=== PATIENT | male | born 1970 | race Caucasian/White ===

== ENCOUNTER 2018-05-07 11:12 | Inpatient (IN) | payer OTHER ==
[~2018-05-07] VITALS: Ht 198.1 cm; Wt 105.1 kg
--- NOTE | ~2018-05-07 | CON ---
[facility] [address] [place] [address] CONSULTATION Name: JONA NELSON Room: [address] IN .R.#: [id number] Admission: 05/07/18 Attend Phys: Sung Asher MD Discharge: Date of : 68 Report #: [id number] THIS REPORT FOR: //name// CC: VINICIUS physician/PCP Sung Asher REASON FOR CONSULTATION: Paroxysmal atrial fibrillation, hypertension and chest pain. HISTORY OF PRESENT ILLNESS: The patient is a very pleasant 47-year-old gentleman who ran out of medication some time ago. He has been having intermittent palpitations consistent with paroxysmal atrial fibrillation. In the past, he was well controlled on beta shakir alone. His CHADS score is 1 for hypertension. He is not chronically anticoagulated. He noted some atypical midsternal chest discomfort without radiation earlier today. This occurred while at rest. EKG was unremarkable. Troponins are unremarkable. He is without other cardiac complaint. PAST MEDICAL HISTORY: 1. Hypertension. 2. Paroxysmal atrial fibrillation. FAMILY HISTORY: The patient's father of heart disease in his mid 30s or early 40s. No other history of heart disease in the family. SOCIAL HISTORY: The patient smokes marijuana occasionally. He does not smoke tobacco, cigarettes. He drinks alcohol occasionally. He is single. ALLERGIES: None documented. CURRENT MEDICATIONS: None. PRIOR HOME MEDICATIONS: Included metoprolol tartrate 100 mg p.o. b.i.d., amlodipine 5 mg daily, hydrochlorothiazide 25 mg daily. REVIEW OF SYSTEMS: A 14-point review of systems is positive for occasional episodes of weakness and numbness of his left upper extremity. He has an occasional cough that is minimally productive. He reports palpitations and chest discomfort as outlined above. He has seasonal allergies, but no medical allergies. He reports history of depression and anxiety in the past. Otherwise, 14-point review of systems was unremarkable. PHYSICAL EXAMINATION: VITAL SIGNS: Blood pressure 160/104, pulse 93 and regular. GENERAL: This is a pleasant gentleman in no distress. [place] [address] CONSULTATION Name: OJNA NELSON Room: [address] IN [facility].#: [id number] Admission: 05/07/18 Attend Phys: Sung Asher MD Discharge: Date of : 68 Report #: [id number] HEENT: Extraocular muscles intact. Mucous membranes moist. NECK: Shows no jugular venous distention, no carotid bruit. CHEST: Reveals clear lung mario without wheezes or rales. CARDIAC: Reveals regular rhythm. Normal S1 and S2. I do not appreciate gallop or murmur. ABDOMEN: Reveals normal bowel sounds. The abdomen is soft and nontender. EXTREMITIES: Shows no edema. Peripheral pulses are 2+ and easily palpable. A 12-lead EKG shows sinus rhythm with no significant ST or T-wave abnormality. LABORATORY DATA: Labs are reviewed. Electrolytes within normal limits. BUN and creatinine normal. Serum glucoses are normal. Troponin is less than 0.06 on 2 separate occasions. IMPRESSION AND RECOMMENDATIONS: 1. Hypertension. Resume home medications as outlined above. 2. Paroxysmal atrial fibrillation. Recommend daily aspirin. I have resumed metoprolol. No further changes at this time. 3. Chest pain, somewhat atypical and prolonged in nature. Enzymes and EKG are unremarkable. We will follow clinically. Consider outpatient stress testing if necessary. By: [id number] Gotti MD /nt
[~2018-05-07 11:12] MED LIST: HYDROCHLOROTHIA25 M2 PO; HYDROCODON-ACE1 EAC7 PO; LOPRESSOR100 M1 PO; NORVASC5 MG PO; PENICILLIN VK500 MG PO
[2018-05-07 11:15] VITALS: BP 183/110
[2018-05-07 11:30] LABS: ABSOLUTE BASOPHILS 0.1 thou/uL (0.0-0.2); ABSOLUTE LYMPHOCYTES 2.2 thou/uL (0.8-5.3); ABSOLUTE MONOCYTES 0.4 thou/uL (0.0-1.2); ABSOLUTE NEUTROPHILS 10.1 thou/uL (1.6-8.1); BASOPHILS 0.5 %; HEMATOCRIT 46.1 % (42.0-52.0); HEMOGLOBIN 15.6 gm/dL (14.0-18.0); LYMPHOCYTES 17.3 %; MCH 29.5 pg (26.0-34.0); MCHC 33.8 g/dL (28.0-37.0); MCV 87.2 fL (80.0-100.0); MPV 8.6 fl. (7.2-11.1); NUCLEATED RBCS 0 /100WBC; PLATELET COUNT* 329 thou/uL (150-400); POLYS 79.2 %; RBC 5.28 mil/uL (4.50-6.00); RDW-CV 14.3 % (10.5-14.5); WBC 12.8 thou/uL (4.0-11.0)
[2018-05-07 11:37] LABS: APTT 26.6 Seconds (25.0-31.3); INR 1.1; PROTIME 10.8 Seconds (9.20-11.50)
[2018-05-07 11:40] LABS: ANION GAP 13 mmol/L (7-16); BUN 14 mg/dL (7-18); CALCIUM 9.3 mg/dL (8.5-10.1); CHLORIDE 105 mmol/L (98-107); CO2 25 mmol/L (21-32); CREATININE 1.3 mg/dL (0.6-1.3); GLUCOSE 95 mg/dL (70-99); POTASSIUM 4.1 mmol/L (3.5-5.1); SODIUM 143 mmol/L (136-145); TROPONIN-I LEVEL <0.06 ng/mL (<0.06)
[2018-05-07 11:43] LABS: ALBUMIN 4.4 g/dL (3.4-5.0); ALKALINE PHOSPHATASE 93 U/L (46-116); CK-MB MASS 5.4 ng/mL (<0.5-3.6); LIPASE 207 U/L (73-393); MAGNESIUM 2.1 mg/dL (1.8-2.4); NT-PRO BRAIN NAT PEPTIDE 144 pg/mL (<300); SGOT 29 U/L (15-37); SGPT 27 U/L (30-65); TOTAL BILIRUBIN 0.4 mg/dL (<0.1-1.0)
--- NOTE | 2018-05-07 13:20 | NUR ---
PENNY RELEASED PT FROM CUSTODY DUE TO PT BEING ADMITTED TO THE HOSPITAL.
[2018-05-07 14:07] VITALS: BP 170/108
[2018-05-07 14:25] VITALS: BP 160/104
[2018-05-07 16:05] VITALS: BP 158/97
--- NOTE | 2018-05-07 16:21 | NUR ---
ARRIVED ON UNIT BY CART @ 1410. PT ORIENTED TO ROOM. BLOOD PRESSURE ELEVATED @ 160/104. PLACED ON CERTIFIED RESIDENTIAL MEDICATION AIDE. PT INDICATED PAIN @ 2/[address] MARTINEZ NOTIFIED OF ELEVATED BP. NEW ORDER RECEIVED AND MEDICATION ADMINISTERED. WILL CONTINUE TO MONITOR.
--- NOTE | 2018-05-07 17:55 | NUR ---
ASSUMED CARE OF PT FROM VIJAY CASTANEDA READ AND AGREE WITH HER ASSESSMENT. PT HAS RESTED IN HIS ROOM WITH NO C/O PAIN OR DISCOMFORT. HOURLY ROUNDING CONT.
[2018-05-07 20:20] VITALS: BP 157/98
[2018-05-08] VITALS: BP 156/101
[2018-05-08 04:00] VITALS: BP 139/89
--- NOTE | 2018-05-08 05:07 | NUR ---
PT CARE ASSUMED AT 1930. SAT MAINTAINED IN RA. ALERT AND ORIENTED X4. CALL LIGHT WITHIN REACH AND BED IN LOW POSITION. C/O PAIN, MEDICATION GIVEN PER EMAR. DENIES SOB AND CHEST PAIN. BP ELEVATED AT LA, PHYCISIAN NOTIFIED, NO ORDERS RECIEVED. BP IMPROVED IN THE MONRNING. HOURLY ROUNDING DONE FOR PT SAFETY.
[2018-05-08 08:00] VITALS: BP 147/96
[2018-05-08 10:04] VITALS: BP 147/96
--- NOTE | 2018-05-08 12:11 | EKG ---
[place] [address] ELECTROCARDIOGRAM REPORT Name: JONA NELSON Room: [address] IN 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1970 Requested By: Jarrell Aguilar Order Number: [id number] MD: Vernon Ryan Measurements Intervals [place] Rate: 96 P: 60 [place]: 163 QRS: 19 QRSD: 85 T: 4 QT: 357 QTc: 452 Interpretive Statements Sinus rhythm Probable left atrial enlargement RSR' in V1 or V2, probably normal variant Minimal ST elevation, anterior leads Baseline wander in lead(s) V2,V4 Compared to ECG 09/17/2016 17:36:55 RSR' in V1 or V2 now present ST (T wave) deviation now present Electronically Signed On 05-08-2018 12:11:30 CDT by Vernon Ryan [email or web address] <ELECTRONICALLY SIGNED> By: Vernon Ryan MD, FACC 05/08/18 1211 1126 [id number] Vernon Ryan MD, [facility] /EPI
--- NOTE | 2018-05-08 12:16 | EKG ---
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1970 Requested By: Sung Asher Order Number: [id number] Reading MD: Vernon Ryan Measurements Intervals [place] Rate: 70 P: 25 [place]: 166 QRS: 6 QRSD: 89 T: 1 QT: 399 QTc: 431 Interpretive Statements Sinus rhythm ST elev, probable normal early repol pattern Compared to ECG 09/17/2016 17:36:55 ST (T wave) deviation now present Electronically Signed On 05-08-2018 12:15:52 CDT by Vernon Ryan [email or web address] <ELECTRONICALLY SIGNED> By: Vernon Ryan MD, [facility] 05/08/18 1215 08 08 Vernon Ryan MD, [facility] /EPI
== END 2018-05-08 10:45 | disposition home or self-care (01) | DRG 313 ==
LOC: M.ERS 11:12 → M.TBA-ER 12:52 → M.2W 12:52
PROVIDERS: Emergency Medicine
DX: R07.89 Other chest pain (principal); I10 Essential (primary) hypertension; F12.90 Cannabis use, unspecified, uncomplicated; I48.0 Paroxysmal atrial fibrillation

== ENCOUNTER 2018-09-17 05:49 | Emergency (ER) | payer OTHER ==
[~2018-09-17] VITALS: Ht 198.1 cm; Wt 104.3 kg
[2018-09-17] MEDS ORDERED: CLEOCIN HCL150 MG PO (06:21)
[2018-09-17] MEDS ORDERED: NORCO 7.5-3251 EACH PO (06:21)
[2018-09-17 06:30] VITALS: BP 160/116
== END 2018-09-17 06:30 | disposition home or self-care (01) ==
LOC: M.ERS 05:49
DX: L03.011 Cellulitis of right finger (principal); I48.91 Unspecified atrial fibrillation; I10 Essential (primary) hypertension

== ENCOUNTER 2019-09-25 02:32 | Emergency (ER) | payer OTHER ==
[~2019-09-25] VITALS: Ht 198.1 cm; Wt 99.8 kg
[~2019-09-25 02:32] MED LIST changes: +CLEOCIN HCL150 MG PO; +NORCO 7.5-3251 EACH PO
[2019-09-25 03:11] LABS: ABSOLUTE LYMPHOCYTES 2.3 thou/uL (0.8-5.3); ABSOLUTE MONOCYTES 0.8 thou/uL (0.0-1.2); ABSOLUTE NEUTROPHILS 6.8 thou/uL (1.6-8.1); BASOPHILS 0.4 %; HEMATOCRIT 44.3 % (42.0-52.0); HEMOGLOBIN 15.2 gm/dL (14.0-18.0); LYMPHOCYTES 23.2 %; MCH 30.8 pg (26.0-34.0); MCHC 34.2 g/dL (28.0-37.0); MONOCYTES 8.1 %; MPV 8.5 fl. (7.2-11.1); NUCLEATED RBCS 0 /100WBC; PLATELET COUNT* 338 thou/uL (150-400); POLYS 68.3 %; RBC 4.92 mil/uL (4.50-6.00); RDW-CV 13.4 % (10.5-14.5)
[2019-09-25 03:23] LABS: CALCIUM 9.1 mg/dL (8.5-10.1); CREATININE 1.4 mg/dL (0.6-1.3); POTASSIUM 4.5 mmol/L (3.5-5.1)
[2019-09-25 03:27] LABS: ALBUMIN 4.5 g/dL (3.4-5.0); MAGNESIUM 2.1 mg/dL (1.8-2.4); TOTAL BILIRUBIN 0.3 mg/dL (<0.1-1.0); TOTAL PROTEIN 8.3 g/dL (6.4-8.2)
[2019-09-25] MEDS ORDERED: HYDROCHLOROTH12.5 M2 PO (04:02)
[2019-09-25] MEDS ORDERED: LOPRESSOR50 MG PO (04:02)
[2019-09-25] MEDS ORDERED: AMOXICILLIN 50500 M1 PO (04:16)
[2019-09-25 05:28] VITALS: BP 168/98
--- NOTE | 2019-09-25 10:45 | EKG ---
[place] [address] ELECTROCARDIOGRAM REPORT Name: JONA NELSON Room: [facility]#: [id number] Admission: 09/25/19 Attend Phys: Discharge: 09/25/19 Date of : 68 Date of Service: 09/25/19 0240 Report #: [id number] THIS REPORT FOR: //name// [facility] ED Test Date: 2019-09-25 Test Time: 02:40:11 Pat Name: JONA NELSON Department: Room: Gender: Spout Positioner: JAYLA : 1970 Requested By: Vickie Helton Order Number: [id number] MD: Jens Vang Measurements Intervals [place] Rate: 110 P: 40 [place]: 164 QRS: 10 QRSD: 84 T: 2 QT: 322 QTc: 436 Interpretive Statements Sinus tachycardia Compared to ECG 05/08/2018 08:12:19 Sinus rhythm no longer present Electronically Signed On 09-25-2019 10:45:19 CDT by Jens Vang [email or web address] <ELECTRONICALLY SIGNED> By: Jens Vang MD, [facility] 09/25/19 1045 0240 0240 eJns Vang MD, [facility] /EPI
== END 2019-09-25 05:28 | disposition home or self-care (01) ==
LOC: M.ERS 02:32
PROVIDERS: Emergency Medicine
DX: I10 Essential (primary) hypertension (principal); I48.91 Unspecified atrial fibrillation